=== PATIENT | female | born 1950 | race Caucasian/White ===

== ENCOUNTER 2017-09-05 15:56 | Outpatient (CLI) | payer MEDICARE | END 2017-09-05 15:57 | disposition home or self-care (01) | LOC: BICMAMMO 15:56 | PROVIDERS: ATTEND Obstetrics & Gynecology | DX: Z12.31 Encounter for screening mammogram for malignant neoplasm of breast (principal); R92.1 Mammographic calcification found on diagnostic imaging of breast | CPT/HCPCS: 77063; G0202; 77067 ==

== ENCOUNTER 2017-10-10 07:56 | Outpatient (CLI) | payer MEDICARE ==
[2017-10-10] MEDS ORDERED: Iopamidol 370 76% 100 ML VIAL ONE (16:20)
== END 2017-10-10 07:57 | disposition home or self-care (01) ==
LOC: BICMRI 07:56
PROVIDERS: ATTEND Family Medicine
DX: M25.562 Pain in left knee (principal); R10.84 Generalized abdominal pain; S83.242A Other tear of medial meniscus, current injury, left knee, initial encounter; S83.282A Other tear of lateral meniscus, current injury, left knee, initial encounter; M94.262 Chondromalacia, left knee; K57.90 Diverticulosis of intestine, part unspecified, without perforation or abscess without bleeding
CPT/HCPCS: 74177

== ENCOUNTER 2017-10-27 15:09 | Outpatient (CLI) | payer MEDICARE ==
[2017-10-27 15:29] LABS: Hemoglobin 13.8 g/dL (12.0-16.0); Mean Corpuscular HGB CONC 34.1 g/dL (32.0-36.0); Mean Corpuscular Hemoglobin 30.6 pg (27.0-31.0); Mean Corpuscular Volume 89.8 fl (81.0-99.0); Platelet Count 259 thou/uL (130-400); RBC Distribution Width 11.6 % (11.5-14.5); White Blood Cell (WBC) Count 10.1 thou/uL (4.8-10.8)
[2017-10-27 16:07] LABS: Anion Gap 13 mmol/L (10-20); BUN (Urea Nitrogen) 13 mg/dL (9.8-20.1); Calc. Creatinine Clearance 0 mL/min (70-130); Calcium 9.4 mg/dL (7.8-10.44); Carbon Dioxide 27 mmol/L (23-31); Chloride 106 mmol/L (98-107); Estimated GFR-MDRD 72; Glucose 110 mg/dL (80-115); Potassium 3.9 mmol/L (3.5-5.1); Sodium 142 mmol/L (136-145)
--- NOTE | 2017-10-30 09:26 | EKG ---
Test Reason : Blood Pressure : / mmHG Vent. Rate : 075 BPM Atrial Rate : 075 BPM P-R Int : 198 ms QRS Dur : 084 ms QT Int : 358 ms P-R-T Axes : 055 045 057 degrees QTc Int : 399 ms Normal sinus rhythm Normal ECG Confirmed by SHYANN ROA ([id number]) on 10/30/2017 9:25:52 AM Referred By: JEANNE Confirmed By:SHYANN ROA
== END 2017-10-27 15:10 | disposition home or self-care (01) ==
LOC: LABBT 15:09
PROVIDERS: ATTEND Orthopaedic Surgery
DX: Z01.810 Encounter for preprocedural cardiovascular examination (principal); Z01.812 Encounter for preprocedural laboratory examination; S83.242D Other tear of medial meniscus, current injury, left knee, subsequent encounter
CPT/HCPCS: 80048; 85027; 93005; 93010

== ENCOUNTER 2017-11-04 05:52 | Day surgery (SDC) | payer MEDICARE ==
[2017-10-27 15:23] VITALS: BMI 29.8
[2017-11-04] MEDS ORDERED: Bupivacaine PF 0.5% 30 ML VIAL ONE (06:17)
[2017-11-04] MEDS ORDERED: Lidocaine 2% w/Epinephrine 1:200K 20 ML VIAL ONE (06:17)
[2017-11-04] MEDS ORDERED: Diprivan 20 ML ONE ×2 (06:29→06:45)
[2017-11-04] MEDS ORDERED: Fentanyl 100 MCG/2 ML VIAL ONE ×2 (06:30→06:32)
[2017-11-04] MEDS ORDERED: CEFAZOLIN/Water 2 GM/20 ML SYRINGE ONE (07:08)
--- NOTE | 2017-11-04 15:38 | OP ---
PREOPERATIVE DIAGNOSIS: Medial meniscus tear, left knee; loose body, left knee. PROCEDURE: Arthroscopic partial medial meniscectomy, arthroscopic removal of loose bodies. SURGEON: Robert Garcia M.D. ANESTHESIA: General. BLOOD LOSS: Minimal. SPECIMENS: None. DRAINS: None. COMPLICATIONS: None. DESCRIPTION OF PROCEDURE: The patient was taken to the operating room where general anesthesia was i nduced. Left leg was prepped and draped in the usual sterile fashion. Scope was placed in the later al portal and probe was placed in medial portal. 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 Intercondylar notch was examined and ACL was intact. Lateral compartment was free of disease. I examined the gutters. The popliteal recess and the suprapatella r pouch identified a loose body and this was removed. Knee was then drained. Sterile dressings appl ied.
[2017-11-04] MEDS ORDERED: Lidocaine 1% PF 5 ML VIAL ONE (16:25)
[2017-11-04] MEDS ORDERED: Dexamethasone 20 MG/5 ML VIAL ONE (16:25)
[2017-11-04] MEDS ORDERED: Ondansetron HCl/PF 4 MG/2 ML Vial ONE (16:25)
[2017-11-04] MEDS ORDERED: Propofol 200 MG/20 ML VIAL ONE (16:25)
== END 2017-11-04 10:35 | disposition home or self-care (01) ==
LOC: SDC 05:52
PROVIDERS: ATTEND Orthopaedic Surgery
PROC: 0SBD4ZZ Excision of Left Knee Joint, Percutaneous Endoscopic Approach (ICD-10-PCS; principal; 2017-11-04)
DX: S83.242A Other tear of medial meniscus, current injury, left knee, initial encounter (principal); M22.42 Chondromalacia patellae, left knee; E78.5 Hyperlipidemia, unspecified; Z90.710 Acquired absence of both cervix and uterus; Z98.890 Other specified postprocedural states
CPT/HCPCS: 29881; 97139; G8978; G8979; G8980; J1100; J2001; J2405; J2704; J3010; S0020

== ENCOUNTER 2018-10-24 10:53 | Outpatient (CLI) | payer MEDICARE ==
--- NOTE | 2018-10-24 11:54 | RAD ---
TWO VIEWS CHEST: Comparison: None. History: Chest wall pain and rib pain on both sides. FINDINGS: Two views of the chest show normal sized cardiomediastinal silhouette. There is no evidence of consol idation, mass, or pleural effusion. The bones are unremarkable. IMPRESSION: No evidence of acute cardiopulmonary disease. POS: [facility]
== END 2018-10-24 10:54 | disposition home or self-care (01) ==
LOC: BICMAMMO 10:53
PROVIDERS: ATTEND Family Medicine
DX: Z12.31 Encounter for screening mammogram for malignant neoplasm of breast (principal); R07.89 Other chest pain
CPT/HCPCS: 71046; 77063; 77067

== ENCOUNTER 2019-09-13 14:02 | Outpatient (CLI) | payer MEDICARE ==
--- NOTE | 2019-09-13 15:15 | CT ---
CT CHEST WITHOUT CONTRAST: Date: 09/13/19 INDICATION: Chest wall pain. Costochondral pain. Pain localized left sternum. FINDINGS: The lung rudolph are clear of infiltrate. No evidence of effusion. There is a pleural based nodule anterior right middle lobe measuring 7 mm in the axial projection. Mediastinum unremarkable with nonspecific lymph nodes. No evidence of adenopathy. The osseous structures are unremarkable. Thoracic vertebra maintain normal height and alignment. Ribs are unremarkable. Chest wall and soft tissues are unremarkable. No evidence of axillary adenopathy. Images through upper abdomen unremarkable. IMPRESSION: 1. Pleural based nodule anterior right middle lobe. Recommend follow-up chest CT in 6 months to conf irm stability. 2. No acute chest process identified. POS: [facility]
== END 2019-09-13 14:03 | disposition home or self-care (01) ==
LOC: BICCT 14:02
PROVIDERS: ATTEND Family Medicine
DX: R07.1 Chest pain on breathing (principal); R07.89 Other chest pain; R91.1 Solitary pulmonary nodule
CPT/HCPCS: 71250

== ENCOUNTER 2019-11-01 10:43 | Outpatient (CLI) | payer MEDICARE, OTHER ==
--- NOTE | 2019-11-01 12:42 | MMO ---
Bilateral MAMMO Bilat Screen [facility]. CLINICAL HISTORY: Patient is 69 years old and is seen for screening. The patient has no family history of breast cancer. The patient has no personal history of cancer. VIEWS: The views performed were: bilateral craniocaudal with tomosynthesis and bilateral mediolateral oblique with tomosynthesis. FILMS COMPARED: The present examination has been compared to prior imaging studies performed at [facility] on 12/18/2014, 12/23/2015, 09/05/2017 and 10/24/2018. This study has been interpreted with the assistance of computer-aided detection. MAMMOGRAM FINDINGS: There are scattered fibroglandular densities. Benign calcifications are noted bilaterally. There are no suspicious masses, suspicious calcifications, or new areas of architectural distortion. IMPRESSION: THERE IS NO MAMMOGRAPHIC EVIDENCE OF MALIGNANCY. A ROUTINE FOLLOW-UP MAMMOGRAM IN 1 YEAR IS RECOMMENDED. THE RESULTS OF THIS EXAM WERE SENT TO THE PATIENT. ACR BI-RADS Category 2 - Benign finding MAMMOGRAPHY NOTE: 1. A negative mammogram report should not delay a biopsy if a dominant of clinically suspicious mass is present. 2. Approximately 10% to 15% of breast cancers are not detected by mammography. 3. Adenosis and dense breasts may obscure an underlying neoplasm. Reported by: INES DAVE MD Electonically Signed: [id number]
== END 2019-11-01 10:44 | disposition home or self-care (01) ==
LOC: BICMAMMO 10:43
PROVIDERS: ATTEND Family Medicine
DX: Z12.31 Encounter for screening mammogram for malignant neoplasm of breast (principal)
CPT/HCPCS: 77063; 77067

== ENCOUNTER 2020-04-14 12:15 | Outpatient (CLI) | payer MEDICARE, OTHER ==
--- NOTE | 2020-04-14 14:25 | CT ---
CT CHEST WITHOUT CONTRAST: Date: 04/14/2020 INDICATION: Follow-up pulmonary nodule. COMPARISON: CT chest dated 09/13/2019. That exam revealed a 7 mm pleural based nodule right middle lobe. FINDINGS: The 7 mm pleural based nodule in the right middle lobe is again seen and appears stable. No other nodule identified. No infiltrate or effusion. Heart and mediastinum unremarkable. Osseous st ructures unremarkable. IMPRESSION: Stable right middle lobe nodule. Suggest follow-up noncontrast CT chest in 6-12 months. POS: [facility]
== END 2020-04-14 12:16 | disposition home or self-care (01) ==
LOC: BICCT 12:15
PROVIDERS: ATTEND Family Medicine
DX: R91.1 Solitary pulmonary nodule (principal)
CPT/HCPCS: 71250

== ENCOUNTER 2020-12-01 08:04 | Outpatient (CLI) | payer MEDICARE, OTHER | END 2020-12-01 08:05 | disposition home or self-care (01) | LOC: BICMAMMO 08:04 | PROVIDERS: ATTEND Family Medicine | DX: Z12.31 Encounter for screening mammogram for malignant neoplasm of breast (principal) | CPT/HCPCS: 77063; 77067 ==

== ENCOUNTER 2020-12-10 08:57 | Outpatient (CLI) | payer MEDICARE, OTHER | END 2020-12-10 08:58 | disposition home or self-care (01) | LOC: BICCT 08:57 | PROVIDERS: ATTEND Family Medicine | DX: R91.1 Solitary pulmonary nodule (principal) | CPT/HCPCS: 71250 ==

== ENCOUNTER 2021-02-03 09:52 | Outpatient (CLI) | payer MEDICARE, OTHER | END 2021-02-03 09:53 | disposition home or self-care (01) | LOC: BICRAD 09:52 | PROVIDERS: ATTEND Family Medicine | DX: M54.5 Low back pain (principal); M48.07 Spinal stenosis, lumbosacral region; M43.17 Spondylolisthesis, lumbosacral region; M51.37 Other intervertebral disc degeneration, lumbosacral region | CPT/HCPCS: 72100 ==

== ENCOUNTER 2021-03-12 15:08 | Outpatient (CLI) | payer MEDICARE | END 2021-03-12 15:09 | disposition home or self-care (01) | LOC: BICMRI 15:08 | PROVIDERS: ATTEND Anesthesiology Pain Medicine | DX: M43.16 Spondylolisthesis, lumbar region (principal); M43.17 Spondylolisthesis, lumbosacral region; M48.07 Spinal stenosis, lumbosacral region; M48.061 Spinal stenosis, lumbar region without neurogenic claudication; M48.05 Spinal stenosis, thoracolumbar region | CPT/HCPCS: 72110; 72148 ==

== ENCOUNTER 2022-07-12 07:38 | Outpatient (CLI) | payer MEDICARE ==
[2022-07-12] MEDS ORDERED: Iopamidol-370 76% 500 ML 1 ML ONE (12:05)
== END 2022-07-12 07:39 | disposition home or self-care (01) ==
LOC: BICCT 07:38
PROVIDERS: ATTEND Internal Medicine Gastroenterology
DX: R10.32 Left lower quadrant pain (principal); R10.13 Epigastric pain; R10.31 Right lower quadrant pain; M54.9 Dorsalgia, unspecified; K76.0 Fatty (change of) liver, not elsewhere classified; N28.1 Cyst of kidney, acquired; M43.17 Spondylolisthesis, lumbosacral region; G89.29 Other chronic pain
CPT/HCPCS: 74177; 82565; Q9967

== ENCOUNTER 2023-05-03 08:58 | Outpatient (CLI) | payer MEDICARE, OTHER | END 2023-05-03 08:59 | disposition home or self-care (01) | LOC: BICMAMMO 08:58 | PROVIDERS: ATTEND Family Medicine | DX: Z12.31 Encounter for screening mammogram for malignant neoplasm of breast (principal) | CPT/HCPCS: 77063; 77067 ==

== ENCOUNTER 2024-09-18 19:20 | Inpatient (IN) | payer MEDICARE ==
[~2024-09-18 19:20] MED LIST: Iopamidol-370 76% 500 ML MDV (1 ML CHARGE) ONE
[2024-09-18 19:47] LABS: #Basophils 0.06 10x3/uL (0.0-0.2); %Basophils 0.6 % (0.0-1.0); %Eosinophils 2.5 % (0.0-10.0); %Monocytes 6.8 % (0.0-10.0); %Neutrophils 45.8 % (42.0-75.0); Hematocrit 37.8 % (36.0-47.0); Hemoglobin 13.1 g/dL (12.0-16.0); Mean Corpuscular HGB CONC 34.7 g/dL (32.0-36.0); Mean Corpuscular Hemoglobin 29.3 pg (27.0-31.0); Mean Corpuscular Volume 84.6 fL (78.0-98.0); Mean Platelet Volume 9.7 fL (7.4-10.4); Platelet Count 256 10x3/uL (130-400); Red Blood Cell (RBC) Count 4.47 mill/uL (4.20-5.40)
[2024-09-18 20:10] LABS: ALT (SGPT) 18 U/L (8-55); AST (SGOT) 15 U/L (5-34); Albumin 4.1 g/dL (3.4-4.8); Alkaline Phosphatase 71 U/L (40-110); Anion Gap 13 mmol/L (10-20); BUN (Urea Nitrogen) 16 mg/dL (9.8-20.1); Bilirubin, Total 0.3 mg/dL (0.2-1.2); Calc. Creatinine Clearance 0 mL/min (70-130); Carbon Dioxide 21 mmol/L (23-31); Chloride 108 mmol/L (98-107); Estimated GFR 85; Globulin 3.3 g/dL (2.4-3.5); Glucose 126 mg/dL (83-110); Potassium 3.3 mmol/L (3.5-5.1); Protein, Total 7.4 g/dL (5.8-8.1); Sodium 139 mmol/L (136-145)
[2024-09-18 20:14] LABS: Troponin I 0.022 ng/mL (< 0.028)
[2024-09-18] MEDS ORDERED: Potassium Chloride 20 MEQ TAB ONE (22:33)
[2024-09-18 22:49] LABS: Bacteria/HPF None Seen HPF (None Seen); Bilirubin Negative (Negative); Blood, Urine Negative (Negative); CAUTI Indications for Culture Pelvic or flank pain; Clarity Clear (Clear); Glucose, Urine (Dipstick) Normal (Negative); Ketone, Urine Negative (Negative); Leukocyte Negative Leu/uL (Negative); Nitrite Negative (Negative); Protein, Urine (Dipstick) Negative (Neg-Trace); RBC/HPF 0-3 HPF (0-3); Specific Gravity, Urine 1.008 (1.002-1.036); Squamous Epithelial None Seen HPF (0-3); Urobilinogen Normal mg/dL (Less than 2); WBC/HPF 0-3 HPF (0-3)
[2024-09-18 22:51] LABS: Urine Culture Reflex No No
[2024-09-18] MEDS ORDERED: hydrALAZINE 20 MG/ML VIAL SLOW IVP PRN (23:48)
[2024-09-18] MEDS ORDERED: Ondansetron PF 4 MG/2 ML Vial IVP PRN (23:48)
[2024-09-18] MEDS ORDERED: Labetalol HCl 100 MG/20 ML VIAL SLOW IVP PRN (23:48)
[2024-09-19] MEDS ORDERED: Aspirin Chewable 81 MG TAB ONE (00:08)
[2024-09-19] MEDS: Aspirin 325 MG TAB PO SCH (00:15)
[2024-09-19 00:19] VITALS: BMI 29.2
[2024-09-19 03:40] LABS: #Basophils 0.05 10x3/uL (0.0-0.2); %Basophils 0.6 % (0.0-1.0); %Lymphocytes 31.4 % (21.0-51.0); %Monocytes 7.2 % (0.0-10.0); %Neutrophils 59.6 % (42.0-75.0); Hematocrit 37.1 % (36.0-47.0); Hemoglobin 12.8 g/dL (12.0-16.0); Mean Corpuscular HGB CONC 34.5 g/dL (32.0-36.0); Mean Corpuscular Hemoglobin 29.7 pg (27.0-31.0); Mean Corpuscular Volume 86.1 fL (78.0-98.0); Mean Platelet Volume 9.6 fL (7.4-10.4); Platelet Count 224 10x3/uL (130-400); Red Blood Cell (RBC) Count 4.31 mill/uL (4.20-5.40)
[2024-09-19 03:50] LABS: Hemoglobin A1c 5.7 % (4.0-6.0)
[2024-09-19 04:00] LABS: Anion Gap 12 mmol/L (10-20); BUN (Urea Nitrogen) 11 mg/dL (9.8-20.1); Calc. Creatinine Clearance 94 mL/min (70-130); Calcium 8.6 mg/dL (7.8-10.44); Carbon Dioxide 24 mmol/L (23-31); Cardiac Risk 4.2 (Less than 4.5); Chloride 110 mmol/L (98-107); Cholesterol 192 mg/dl (< 200 Desired); Estimated GFR 92; Glucose 114 mg/dL (83-110); HDL Cholesterol 46 mg/dL (>60 Neg Risk); LDL Cholesterol, Calculated 121 mg/dL; Magnesium 2.2 mg/dL (1.6-2.6); Sodium 142 mmol/L (136-145); Triglycerides 127 mg/dL (Less than 150)
[2024-09-19] MEDS: Aspirin 81 mg Enteric Coated Tablet PO SCH (09:22)
[2024-09-19] MEDS: Atorvastatin Calcium 40 MG TAB PO SCH (20:09)
[2024-09-20] MEDS: Acetaminophen 325 MG TAB PO PRN (07:56)
[2024-09-20] MEDS ORDERED: FLU (Fluad Triv) TS24-25 (65UP)/MF59C/PF 45 MCG/0.5 ML Syringe IM ONE (09:00)
[2024-09-20 11:54] VITALS: BP 153/80; TEMP 98.3
== END 2024-09-20 15:29 | disposition home or self-care (01) | DRG 65 ==
LOC: ERS 19:20 → ERHOLD 23:48 → 2SE 09-19 08:10 → OBSVTOIN 09-19 16:41
PROVIDERS: ADMIT Internal Medicine; ATTEND Internal Medicine
DX: I63.511 Cerebral infarction due to unspecified occlusion or stenosis of right middle cerebral artery (principal); E87.20 Acidosis, unspecified; M19.90 Unspecified osteoarthritis, unspecified site; I10 Essential (primary) hypertension; E04.1 Nontoxic single thyroid nodule; R29.701 NIHSS score 1; E87.6 Hypokalemia; M25.562 Pain in left knee; M17.12 Unilateral primary osteoarthritis, left knee
CPT/HCPCS: 36415; 70496; 70551; 71045; 80048; 80053; 80061; 81001; 83036; 83735; 84484; 85025; 93005; G0378; Q9967

== ENCOUNTER 2025-05-22 07:57 | Outpatient (CLI) | payer MEDICARE | END 2025-05-22 07:58 | disposition home or self-care (01) | LOC: BICMAMMO 07:57 | PROVIDERS: ATTEND Student in an Organized Health Care Education/Training Program | DX: Z12.31 Encounter for screening mammogram for malignant neoplasm of breast (principal) | CPT/HCPCS: 77063; 77067 ==

== ENCOUNTER 2025-06-04 09:07 | Outpatient (CLI) | payer MEDICARE | END 2025-06-04 09:08 | disposition home or self-care (01) | LOC: BICMAMMO 09:07 | PROVIDERS: ATTEND Student in an Organized Health Care Education/Training Program | DX: Z78.0 Asymptomatic menopausal state (principal); M85.89 Other specified disorders of bone density and structure, multiple sites | CPT/HCPCS: 77080 ==

== ENCOUNTER 2025-06-11 09:06 | Outpatient (CLI) | payer MEDICARE | END 2025-06-11 09:07 | disposition home or self-care (01) | LOC: SCSMRI 09:06 | PROVIDERS: ATTEND Nurse Practitioner Family | DX: M54.12 Radiculopathy, cervical region (principal); M48.02 Spinal stenosis, cervical region | CPT/HCPCS: 72141 ==

== ENCOUNTER 2025-07-15 05:35 | Observation (INO) | payer MEDICARE ==
[2025-07-08 11:32] LABS: #Basophils 0.05 10x3/uL (0.0-0.2); #Eosinophils 0.17 10x3/uL (0.0-0.7); #Monocytes 0.51 10x3/uL (0.11-0.59); #Neutrophils 4.23 10x3/uL (1.40-6.50); %Basophils 0.7 % (0.0-1.0); %Eosinophils 2.3 % (0.0-10.0); %Lymphocytes 32.6 % (21.0-51.0); %Monocytes 6.9 % (0.0-10.0); %Neutrophils 57.2 % (42.0-75.0); Hematocrit 39.3 % (36.0-47.0); Hemoglobin 12.8 g/dL (12.0-16.0); Mean Corpuscular Hemoglobin 29.2 pg (27.0-31.0); Mean Corpuscular Volume 89.7 fL (78.0-98.0); Platelet Count 253 10x3/uL (130-400); Red Blood Cell (RBC) Count 4.38 mill/uL (4.20-5.40); White Blood Cell (WBC) Count 7.39 10x3/uL (4.8-10.8)
[2025-07-08 11:50] LABS: INR-International Normal Ratio 1.0; Prothrombin Time 13.4 sec (12.0-14.7)
[2025-07-08 11:53] LABS: ALT (SGPT) 25 U/L (Less than 34); AST (SGOT) 18 U/L (11-34); Albumin 4.2 g/dL (3.1-4.5); Alkaline Phosphatase 73 U/L (40-110); Anion Gap 9 mmol/L (10-20); BUN (Urea Nitrogen) 21 mg/dL (9.8-20.1); Bilirubin, Total 0.7 mg/dL (0.3-1.2); Calc. Creatinine Clearance 97 mL/min (70-130); Calcium 9.4 mg/dL (7.8-10.44); Carbon Dioxide 28 mmol/L (23-31); Chloride 108 mmol/L (98-107); Globulin 2.9 g/dL (2.4-3.5); Glucose 96 mg/dL (83-110); Potassium 3.8 mmol/L (3.5-5.1); Sodium 141 mmol/L (136-145)
[2025-07-15] MEDS ORDERED: Gabapentin 300 MG CAP ONE (06:13)
[2025-07-15] MEDS ORDERED: Acetaminophen 500 MG TAB ONE (06:13)
[2025-07-15] MEDS ORDERED: Tranexamic Acid 1,000 MG/10 ML VIAL ONE ×2 (06:13→10:31)
[2025-07-15] MEDS ORDERED: Vancomycin 1 GM/200 ML (FROZEN) BAG ONE (06:13)
[2025-07-15] MEDS ORDERED: Ropivacaine 0.5% HCl/PF (150 MG/30 ML VIAL) ONE (06:40)
[2025-07-15] MEDS ORDERED: Bupivacaine 0.25% HCL 30 ML VIAL ONE (07:03)
[2025-07-15] MEDS ORDERED: CEFAZOLIN 2 GM VIAL ONE (07:03)
[2025-07-15] MEDS ORDERED: Lidocaine 1% PF 5 ML VIAL ONE (07:10)
[2025-07-15] MEDS ORDERED: fentaNYL PF 100 MCG/2 ML SYRINGE ONE (07:10)
[2025-07-15] MEDS ORDERED: PROPOFOL 20 ML ONE (07:10)
[2025-07-15] MEDS ORDERED: Ondansetron PF 4 MG/2 ML Vial ONE ×2 (07:10→14:27)
[2025-07-15] MEDS ORDERED: Ropivacaine 0.2% 550 ML 550 ML NERVE BLCK SCH (07:30)
[2025-07-15] MEDS ORDERED: Ondansetron PF 4 MG/2 ML Vial IVP PRN ×2 (07:30→13:05)
[2025-07-15] MEDS ORDERED: HYDROcodone/Acetaminophen 10/325 mg Tablet PO PRN ×2 (07:30)
[2025-07-15] MEDS ORDERED: HYDROmorphone 0.5 MG/0.5 ML SYRINGE ONE ×3 (10:51→13:43)
[2025-07-15] MEDS ORDERED: Ketorolac Tromethamine 30 MG (1 mL) VIAL IVP SCH (12:00)
[2025-07-15] MEDS ORDERED: diphenhydrAMINE 25 MG CAP PO PRN (13:05)
[2025-07-15] MEDS ORDERED: oxyCODONE 5 MG TAB PO PRN (13:05)
[2025-07-15] MEDS: Senokot S 8.6-50 MG TAB PO SCH (16:33)
[2025-07-15] MEDS: Multivitamin W/ Minerals 1 TAB PO SCH (16:33)
[2025-07-15] MEDS: Ferrous Gluconate 324 MG TAB PO SCH (16:33)
[2025-07-15] MEDS: oxyCODONE 5 MG TAB PO PRN (16:34)
[2025-07-15] MEDS: Acetaminophen 500 MG TAB PO SCH (18:45)
[2025-07-15] MEDS: Ketorolac Tromethamine 30 MG (1 mL) VIAL IVP SCH (18:46)
[2025-07-16 05:09] LABS: Hematocrit 34.2 % (36.0-47.0); Hemoglobin 11.4 g/dL (12.0-16.0); Mean Corpuscular Hemoglobin 29.5 pg (27.0-31.0); Mean Corpuscular Volume 88.6 fL (78.0-98.0); Platelet Count 234 10x3/uL (130-400); Red Blood Cell (RBC) Count 3.86 mill/uL (4.20-5.40); White Blood Cell (WBC) Count 13.14 10x3/uL (4.8-10.8)
[2025-07-16 05:13] LABS: Anion Gap 16 mmol/L (10-20); BUN (Urea Nitrogen) 14 mg/dL (9.8-20.1); Calc. Creatinine Clearance 74 mL/min (70-130); Calcium 8.6 mg/dL (7.8-10.44); Carbon Dioxide 22 mmol/L (23-31); Chloride 105 mmol/L (98-107); Glucose 135 mg/dL (83-110); Potassium 3.7 mmol/L (3.5-5.1); Sodium 139 mmol/L (136-145)
[2025-07-16 08:10] VITALS: BP 133/68; TEMP 97.9
[2025-07-16] MEDS: Aspirin 81 mg Enteric Coated Tablet PO SCH (09:18)
[2025-07-16 11:28] VITALS: BMI 24.2
[2025-07-18] MEDS ORDERED: FLU (Fluad Triv) 25-26 (65UP)PF 45 MCG/0.5 ML Syringe IM ONE (09:00)
== END 2025-07-16 11:32 | disposition home or self-care (01) ==
LOC: SDC 05:35 → SURG A 15:39
PROVIDERS: ADMIT Student in an Organized Health Care Education/Training Program; ATTEND Student in an Organized Health Care Education/Training Program
PROC: 0SRD0JZ Replacement of Left Knee Joint with Synthetic Substitute, Open Approach (ICD-10-PCS; principal; 2025-07-15)
PROC: 3E0T3BZ Introduction of Anesthetic Agent into Peripheral Nerves and Plexi, Percutaneous Approach (ICD-10-PCS; 2025-07-15)
DX: M17.12 Unilateral primary osteoarthritis, left knee (principal); I10 Essential (primary) hypertension; E78.5 Hyperlipidemia, unspecified; F17.200 Nicotine dependence, unspecified, uncomplicated; Z79.899 Other long term (current) drug therapy
CPT/HCPCS: 0055T; 27447; 64447; 36415; 80048; 80053; 85025; 85027; 85610; 86850; 86900; 86901; 87081; A4306; C1713; C1776; C1889; J0169; J0665; J1100; J1171; J1885; J2250; J2405; J2550; J2704; J2795; J3010; J3373; J7030